=== PATIENT | female | born 1970 | race Two or more races ===

== ENCOUNTER 2016-08-29 16:33 | Emergency (ER) | payer MEDICAID ==
[~2016-08-29] VITALS: Ht 154.9 cm; Wt 146.1 kg
[~2016-08-29 16:33] MED LIST: ALBU0.5N2 IN; ATE50T PO; GAB300C PO; GLY5T PO; HYDROCODON-ACETAMINOPHN PO; LISI10TA6 PO; METF-312 PO; OMEP20TA44 PO
[2016-08-29 17:32] LABS: Basophils # (auto) 0.1 uL; Basophils % (auto) 0.5 % (0.0-2.0); Eosinophils # (auto) 0.1 uL; Eosinophils % (auto) 1.2 % (0.0-7.0); Hematocrit 42.2 % (36.0-46.0); Hemoglobin 13.9 g/dL (12.2-16.2); Lymphocytes # (auto) 1.4 uL; Lymphocytes % (auto) 13.8 % (10.0-50.0); Mean Corpuscular Hemoglobin 27.2 pg (28.0-32.0); Mean Corpuscular Volume 82.2 fL (80.0-100.0); Mean Platelet Volume 8.6 fL (7.4-10.4); Monocytes # (auto) 0.3 uL; Monocytes % (auto) 2.7 % (0.0-12.0); Neutrophils # (auto) 8.2 uL; Neutrophils % (auto) 81.8 % (37.0-80.0); Platelet Count (auto) 251 10^3/uL (140-450); Red Cell Distribution Width 15.6 % (11.6-16.0)
[2016-08-29 17:41] LABS: Urine Bilirubin Negative (Negative); Urine Blood Negative /uL (Negative); Urine Color Yellow (Yellow); Urine Glucose Normal (Normal); Urine Ketone Negative (Negative); Urine Nitrite Negative (Negative); Urine RBC <1 /hpf (0 - 4); Urine Squamous Epithelial Cell FEW /hpf (<5); Urine Urobilinogen Normal (Negative); Urine pH 6.5 (5.0-8.0)
[2016-08-29 18:06] LABS: Albumin 3.7 g/dL (3.4-5.0); BUN/Creatinine Ratio 12.7; Bilirubin, Total 0.4 mg/dL (0.2-1.0); Calcium 9.3 mg/dL (8.5-10.1); Potassium 3.7 mmol/L (3.5-5.1); Total Protein 8.8 g/dL (6.4-8.2)
[2016-08-30] MEDS ORDERED: SODIUM CHLORIDE 0.9% 1,000 ML IVB ONE (01:17)
[2016-08-30] MEDS ORDERED: MORPHINE SULFATE 4 MG/ML SYRG ONE (01:24)
[2016-08-30] MEDS ORDERED: ONDANSETRON HCL 4 MG/2 ML VIAL ONE (01:25)
[2016-08-30] MEDS ORDERED: MORPHINE SULFATE 4 MG/ML SYRG IV ONE (01:30)
[2016-08-30] MEDS ORDERED: ONDANSETRON HCL 4 MG/2 ML VIAL IV ONE (01:30)
[2016-08-30 04:15] VITALS: BP 122/82
== END 2016-08-30 04:55 | disposition home or self-care (01) ==
LOC: ER 17:02
DX: N39.0 Urinary tract infection, site not specified (principal); K21.9 Gastro-esophageal reflux disease without esophagitis; I10 Essential (primary) hypertension; Z87.442 Personal history of urinary calculi; Z88.8 Allergy status to other drugs, medicaments and biological substances; Z85.41 Personal history of malignant neoplasm of cervix uteri
CPT/HCPCS: 36415; 74176; 80053; 81001; 81025; 84702; 85025; 96361; 96374; 96375; 99285; J2270; J2405; J7030